=== PATIENT | female | born 1975 | race American Indian/Alaskan Native ===

== ENCOUNTER 2019-01-05 12:37 | Emergency (ER) | payer SELFPAY ==
--- NOTE | 2019-01-05 13:32 | Emergency Department Report ---
Blank Doc - Documentation Documentation: 43 Y/O FEMALE WITH PMH OF LUPUS VS FIBROMYALGIA /O POLYARTHALGIA AND WEAKNES. CHEST PAIN WITH SOB. NO NAUSEA OR VOMITING. NO MUCUS LPRODUCTION. EXERTION WORSENS SYMPTOMS.
[2019-01-05 13:53] LABS: Basophils % (Auto) 0.4 % (0.0-1.8); Eosinophils # (Auto) 0.1 K/mm3 (0.0-0.4); Eosinophils % (Auto) 1.4 % (0.0-4.3); Hematocrit 36.7 % (30.3-42.9); Lymphocytes # (Auto) 2.1 K/mm3 (1.2-5.4); Lymphocytes % (Auto) 31.7 % (13.4-35.0); Mean Corpuscular HGB Conc 33 % (30-34); Mean Corpuscular Volume 84 fl (79-97); Monocytes # (Auto) 0.5 K/mm3 (0.0-0.8); Monocytes % (Auto) 7.9 % (0.0-7.3); Platelet Count 361 K/mm3 (140-440); Red Blood Count 4.36 M/mm3 (3.65-5.03); Red Cell Distribution Width 16.5 % (13.2-15.2)
--- NOTE | 2019-01-05 14:06 | XRay Report ---
Single view chest: Next History: Chest pain. Findings: T. normal cardiomediastinal silhouette. Trachea is midline. No consolidation, pneumothorax or pleural effusion. Impression: No acute cardiopulmonary findings.
[2019-01-05] MEDS ORDERED: TORADOL IM ONE (14:14)
[2019-01-05 14:20] LABS: Alanine Aminotransferase 11 units/L (7-56); Albumin 3.9 g/dL (3.9-5); BUN/Creatinine Ratio 10; Blood Urea Nitrogen 7 mg/dL (7-17); Calcium 9.5 mg/dL (8.4-10.2); Hemolysis Index 6
--- NOTE | 2019-01-05 15:07 | Emergency Department Report ---
ED General Adult HPI - General Chief complaint: Pain General Stated complaint: LUPUS FLARE UP Time Seen by Provider: 01/05/19 13:29 Source: patient Mode of arrival: Ambulatory Limitations: No Limitations - History of Present Illness Initial comments: pt is a 43 yo female who presents to the ED with c/o generalized joint pain that began two days ago. She has associated fatigue, exertional SOB, BLE edema, and generalized chest discomfort. She states that her chest pain is all over and she relates it to her fibromyaglia per pt. She denies any V/D, fever, recent long car or plane ride, recent surgery, recent immobilization, or hormone use. she has a PMHx of fibromyalgia, lupus, anemia, and IBS. She states that in 2007 she was diagnosed with lupus but in 2018 she went to [facility] and was told she does not have lupus and was taken off the medication. She states she has seen cardiology multiple times. She states that she had a normal stress test and echocardiogram in 2010 and she states that in 2018 she had another stress test and echocardiogram and wore a holter monitor for 30 days which pt states all were normal. she is a former smoker and quit 7 years ago. She denies any drug use and is an occasional drinker. Severity scale (0 -10): 9 - Related Data Previous Rx's Medication Instructions Recorded Last Taken Type Acetaminophen/Codeine [Tylenol 1 tab PO Q6H PRN #10 tab 01/05/19 Unknown Rx /Codeine # 3 tab] Ibuprofen [Motrin 600 MG tab] 600 mg PO Q8H PRN #14 tablet 01/05/19 Unknown Rx Allergies Allergy/AdvReac Type Severity Reaction Status Date / Time azithromycin [From Zithromax] Allergy Hives Verified 01/05/19 12:39 butorphanol [From Stadol] Allergy Unknown Verified 01/05/19 12:39 morphine Allergy Hives Verified 01/05/19 12:39 aspirin AdvReac Nausea Verified 01/05/19 12:39 ED Review of Systems ROS: Stated complaint: LUPUS FLARE UP Other details as noted in HPI Comment: All other systems reviewed and negative ED Past Medical Hx - Past Medical History Additional medical history: Lupus, hypotensive, fibromyalgia, sciatica - Surgical History Hx Cholecystectomy: Yes Additional Surgical History: tubal ligation, hysterectomy, ablation, sweat glands removed - Social History Smoking Status: Never Smoker Substance Use Type: Alcohol - Medications Home Medications: Home Medications Medication Instructions Recorded Confirmed Last Taken Type Acetaminophen/Codeine [Tylenol 1 tab PO Q6H PRN #10 tab 01/05/19 Unknown Rx /Codeine # 3 tab] Ibuprofen [Motrin 600 MG tab] 600 mg PO Q8H PRN #14 tablet 01/05/19 Unknown Rx ED Physical Exam - General Limitations: No Limitations General appearance: alert, in no apparent distress - Head Head exam: Present: atraumatic, normocephalic - Eye Eye exam: Present: normal appearance - ENT ENT exam: Present: mucous membranes moist - Respiratory Respiratory exam: Present: normal lung sounds bilaterally. Absent: respiratory distress, wheezes, rales, rhonchi, stridor, chest wall tenderness, accessory muscle use, decreased breath sounds, prolonged expiratory - Cardiovascular Cardiovascular Exam: Present: regular rate, normal rhythm, normal heart sounds. Absent: systolic murmur, diastolic murmur, rubs, gallop - Extremities Exam Extremities exam: Present: other (small amount of non pitting edema to the BLE, no calf tenderness, no skin changes) - Neurological Exam Neurological exam: Present: alert, oriented X3 - Psychiatric Psychiatric exam: Present: normal affect, normal mood - Skin Skin exam: Present: warm, dry, intact ED Course Vital Signs 01/05/19 01/05/19 13:27 14:28 Temperature 98.5 F Pulse Rate 98 H Respiratory 16 16 Rate Blood Pressure 139/70 [Right] O2 Sat by Pulse 100 Oximetry ED Medical Decision Making - Lab Data Result diagrams: 01/05/19 13:38 01/05/19 13:38 - EKG Data EKG shows normal: sinus rhythm, axis, intervals, QRS complexes, ST-T waves Rate: normal - Radiology Data Radiology results: report reviewed Single view chest: Next History: Chest pain. Findings: T. normal cardiomediastinal silhouette. Trachea is midline. No consolidation, pneumothorax or pleural effusion. Impression: No acute cardiopulmonary findings. Transcribed By: PTP Dictated By: NESHA STRAUSS MD Electronically Authenticated By: NESHA STRAUSS MD Signed Date/Time: 01/05/19 3922 - Medical Decision Making pt is a 43 yo female who presents to the ED with c/o generalized joint pain that began two days ago. She has associated fatigue, exertional SOB, BLE edema, and generalized chest discomfort. She states that her chest pain is all over and she relates it to her fibromyaglia per pt. She denies any V/D, fever, recent long car or plane ride, recent surgery, recent immobilization, or hormone use. she has a PMHx of fibromyalgia, lupus, anemia, and IBS. She states that in 2007 she was diagnosed with lupus but in 2018 she went to [facility] and was told she does not have lupus and was taken off the medication. She states she has seen cardiology multiple times. She states that she had a normal stress test and echocardiogram in 2010 and she states that in 2018 she had another stress test and echocardiogram and wore a holter monitor for 30 days which pt states all were normal. she is a former smoker and quit 7 years ago. She denies any drug use and is an occasional drinker. VSS. EKG is normal. CXR with no acute process. labs are WNL. trop is negative x 2. BNP is normal. pt pain treated with toradol while in the ED and feeling much better. pt given anti-inflammatory and short course of something for pain. discussed not to drive or operate heavy machinery while taking pain medication. follow up with a primary care doctor in the next 2-3 days. pt given list of community resources. return to the emergency room for any new or worsening symptoms. Critical care attestation.: If time is entered above; I have spent that time in minutes in the direct care of this critically ill patient, excluding procedure time. ED Disposition Clinical Impression: SOB (shortness of breath), Bilateral lower extremity edema, BMI 36.0-36.9,adult Joint pain Qualifiers: Joint pain location: unspecified Qualified Code(s): M25.50 - Pain in unspecified joint Chest pain Qualifiers: Chest pain type: unspecified Qualified Code(s): R07.9 - Chest pain, unspecified Disposition: - TO HOME OR SELFCARE Is pt being admited?: No Does the pt Need Aspirin: No Condition: Stable Instructions: Chest Pain (ED), Arthralgia (ED) Additional Instructions: Please follow up with a primary care doctor in the next 2-3 days. Given list of community resources. Take medication as prescribed. Only take pain medication as needed and do not drive or operate heavy machinery while taking. return to the emergency room for any new or worsening symptoms. Prescriptions: Ibuprofen [Motrin 600 MG tab] 600 mg PO Q8H PRN #14 tablet PRN Reason: Pain, Moderate (4-6) Acetaminophen/Codeine [Tylenol /Codeine # 3 tab] 1 tab PO Q6H PRN #10 tab PRN Reason: Pain , Severe (7-10) Referrals: MARGARET SCHREIBER MD [Primary Care Provider] - 2-3 Days Time of Disposition: 17:04 Print Language: URUGUAYAN
[2019-01-05 17:22] VITALS: BP 134/72
== END 2019-01-05 17:21 | disposition home or self-care (01) ==
LOC: ED 12:37
DX: M25.50 Pain in unspecified joint (principal); R60.0 Localized edema; R07.89 Other chest pain; R06.02 Shortness of breath; I95.9 Hypotension, unspecified; Z90.49 Acquired absence of other specified parts of digestive tract; Z90.710 Acquired absence of both cervix and uterus; Z98.51 Tubal ligation status; Z88.1 Allergy status to other antibiotic agents; Z88.6 Allergy status to analgesic agent
CPT/HCPCS: 36415; 71046; 80053; 83880; 84484; 85025; 93005; 93010; 96372; 99284; J1885